=== PATIENT | female | born 1965 | race Caucasian/White ===

== ENCOUNTER 2024-07-09 06:20 | Day surgery (SDC) | payer BC, OTHER, SELFPAY | END 2024-07-09 08:49 | disposition home or self-care (01) | LOC: GI 06:20 | PROVIDERS: ATTENDING PHYSICIAN Surgery | DX: Z12.11 Encounter for screening for malignant neoplasm of colon (principal); K62.5 Hemorrhage of anus and rectum; K57.30 Diverticulosis of large intestine without perforation or abscess without bleeding; K64.9 Unspecified hemorrhoids; D12.5 Benign neoplasm of sigmoid colon; K62.1 Rectal polyp | CPT/HCPCS: 45385; 45381; 45380; 88305 ==